=== PATIENT | female | born 1945 | race Asian ===

== ENCOUNTER 2018-04-30 00:54 | Inpatient (IN) | payer OTHER ==
[2018-04-30] MEDS: CA CHLORIDE 10% 10 ML SYRINGE IV ×2 (01:22→01:58)
[2018-04-30 01:26] LABS: ADD MAN DIFF? NO
[2018-04-30 01:28] LABS: BASOPHILS % 0.3 % (0.0-2.0); EOSINOPHILS % 0.2 % (0.0-7.0); HEMATOCRIT 33.4 % (37.0-47.0); LYMPHOCYTES # 0.7 10^3/ul (0.8-2.9); LYMPHOCYTES % 5.3 % (15.0-51.0); MEAN CORPUSCULAR HEMOGLOBIN 27.1 pg (29.0-33.0); MEAN CORPUSCULAR HGB CONC 29.9 g/dl (32.0-37.0); MEAN CORPUSCULAR VOLUME 90.5 fl (82.0-101.0); MONOCYTE # 0.7 10^3/ul (0.3-0.9); MONOCYTES % 5.1 % (0.0-11.0); NEUTROPHILS % 85.6 % (39.0-77.0); PLATELET COUNT 296 10^3/UL (140-415); RED BLOOD COUNT 3.69 10^6/ul (4.20-5.40); RED CELL DISTRIBUTION WIDTH 15.2 % (11.5-14.5)
[2018-04-30 01:28] LABS: WHITE BLOOD COUNT 12.9 10^3/ul (4.8-10.8)
[2018-04-30] MEDS ORDERED: DEXTROSE 50% 50 ML SYRINGE IV ×2 (01:30→04:00)
[2018-04-30] MEDS: DEXTROSE 50% 50 ML SYRINGE IV (01:31)
[2018-04-30] MEDS: ONDANSETRON 4 MG INJ IV (01:32)
[2018-04-30] MEDS: INSULIN REGULAR, HUMAN 100 UNIT/1 ML 3ML VIAL IVP (01:38)
[2018-04-30] MEDS: ALBUTEROL 0.5% (NEB) 2.5 MG/0.5 ML AMP INH (01:40)
[2018-04-30 01:46] LABS: ANION GAP 11 (5-13); BLOOD UREA NITROGEN 41 mg/dl (7-20); CALCIUM 9.3 mg/dl (8.4-10.2); CARBON DIOXIDE 27 mmol/L (21-31); CHLORIDE 103 mmol/L (97-110); CREATININE 5.45 mg/dl (0.44-1.00); GLUCOSE 232 mg/dl (70-220); MAGNESIUM 2.3 mg/dl (1.7-2.5); PHOSPHORUS 4.3 mg/dl (2.5-4.9); SODIUM 141 mmol/L (135-144)
[2018-04-30 01:48] LABS: INR 1.35; PROTIME 16.8 Sec (11.9-14.9); PT RATIO 1.3
[2018-04-30 01:49] LABS: PARTIAL THROMBOPLASTIN TIME 36.7 Sec (23.0-35.0)
[2018-04-30 01:53] LABS: POTASSIUM 7.3 mmol/L (3.5-5.1)
[2018-04-30 01:57] LABS: TROPONIN-I < 0.012 ng/ml (0.000-0.120)
[2018-04-30] MEDS: NITROGLYCERIN 50 MG/D5W (PMX) 250 ML IV (03:01)
[2018-04-30] MEDS ORDERED: ONDANSETRON 4 MG INJ IV (03:30)
[2018-04-30] MEDS ORDERED: GLUCOSE GEL 15 GRAM TUBE PO ×2 (04:00)
[2018-04-30] MEDS ORDERED: GLUCAGON 1 MG INJ IM (04:00)
[2018-04-30] MEDS ORDERED: GLUCOSE GEL 15 GRAM TUBE BUCCAL (04:00)
[2018-04-30 04:26] LABS: ANION GAP 10 (5-13); BLOOD UREA NITROGEN 42 mg/dl (7-20); CALCIUM 11.5 mg/dl (8.4-10.2); CARBON DIOXIDE 26 mmol/L (21-31); CHLORIDE 105 mmol/L (97-110); CREATININE 5.33 mg/dl (0.44-1.00); GLUCOSE 209 mg/dl (70-220); POTASSIUM 5.3 mmol/L (3.5-5.1); SODIUM 141 mmol/L (135-144)
[2018-04-30] MEDS ORDERED: hydrALAzine 20 MG INJ IV (05:00)
[2018-04-30] MEDS: hydrALAzine 20 MG INJ IV (05:05)
[2018-04-30] MEDS: SODIUM POLYSTYRENE 15 GM KIT (POWDER + SORBITOL) PO (05:06)
[2018-04-30 07:09] LABS: ADD MAN DIFF? NO
[2018-04-30 07:15] LABS: BASOPHILS % 0.2 % (0.0-2.0); HEMATOCRIT 32.8 % (37.0-47.0); HEMOGLOBIN 9.9 g/dl (12.0-16.0); LYMPHOCYTES % 5.9 % (15.0-51.0); MEAN CORPUSCULAR HEMOGLOBIN 26.9 pg (29.0-33.0); MEAN CORPUSCULAR HGB CONC 30.2 g/dl (32.0-37.0); MEAN CORPUSCULAR VOLUME 89.1 fl (82.0-101.0); MEAN PLATELET VOLUME 10.4 fl (7.4-10.4); MONOCYTES % 5.7 % (0.0-11.0); NEUTROPHIL # 14.5 10^3/ul (1.6-7.5); NEUTROPHILS % 86.6 % (39.0-77.0); PLATELET COUNT 298 10^3/UL (140-415); RED BLOOD COUNT 3.68 10^6/ul (4.20-5.40); RED CELL DISTRIBUTION WIDTH 15.2 % (11.5-14.5)
[2018-04-30 07:15] LABS: WHITE BLOOD COUNT 16.8 10^3/ul (4.8-10.8)
[2018-04-30 07:27] LABS: ALANINE AMINOTRANSFERASE 32 IU/L (13-69); ALBUMIN 3.7 g/dl (3.3-4.9); ALBUMIN/GLOBULIN RATIO 1.08; ALKALINE PHOSPHATASE 171 IU/L (42-121); ANION GAP 13 (5-13); ASPARTATE AMINO TRANSFERASE 59 IU/L (15-46); BLOOD UREA NITROGEN 44 mg/dl (7-20); CALCIUM 11.3 mg/dl (8.4-10.2); CARBON DIOXIDE 23 mmol/L (21-31); CHLORIDE 106 mmol/L (97-110); CREATININE 5.29 mg/dl (0.44-1.00); GLUCOSE 177 mg/dl (70-220); MAGNESIUM 2.3 mg/dl (1.7-2.5); SODIUM 142 mmol/L (135-144); TOTAL PROTEIN 7.1 g/dl (6.1-8.1)
[2018-04-30 07:28] LABS: CREATINE KINASE < 20 IU/L (23-200)
[2018-04-30 07:34] LABS: HEMOGLOBIN A1C 6.1 % (0-5.9)
[2018-04-30 07:39] LABS: CK-MB 0.73 ng/ml (0.0-2.4); TROPONIN-I < 0.012 ng/ml (0.000-0.120)
[2018-04-30] MEDS: SEVELAMER CARBONATE 800 MG TABLET PO ×3 (08:15→18:29)
[2018-04-30] MEDS: LOSARTAN 50 MG TAB PO (08:15)
[2018-04-30] MEDS: SENNA TAB PO (08:15)
[2018-04-30] MEDS: ASPIRIN (EC) 81 MG TAB PO (08:15)
[2018-04-30] MEDS: INSULIN GLARGINE [LANTus] (100 UNITS/ML) SYG SC ×2 (08:17→21:01)
[2018-04-30] MEDS: INSULIN ASPART [NOVOLOG] 3 ML PEN SC ×7 (08:18→21:00)
[2018-04-30] MEDS: HEPARIN 5,000 UNIT/1 ML VIAL SC ×2 (08:18→21:03)
[2018-04-30 09:32] LABS: HEPATITIS B SURFACE ANTIGEN NEGATIVE (NEGATIVE)
[2018-04-30 09:52] LABS: HEPATITIS B SURFACE ANTIBODY POSITIVE (NEGATIVE)
[2018-04-30 14:47] LABS: CREATINE KINASE < 20 IU/L (23-200)
[2018-04-30 15:00] LABS: CK-MB 0.79 ng/ml (0.0-2.4); TROPONIN-I < 0.012 ng/ml (0.000-0.120)
[2018-04-30 15:08] LABS: POTASSIUM 3.9 mmol/L (3.5-5.1)
[2018-04-30] MEDS: ATORVASTATIN 20 MG TAB PO (21:00)
[2018-05-01] MEDS: ACCU-CHEK XX (02:00)
[2018-05-01 05:15] LABS: PHOSPHORUS 3.3 mg/dl (2.5-4.9)
[2018-05-01] MEDS: INSULIN ASPART [NOVOLOG] 3 ML PEN SC ×7 (07:35→20:22)
[2018-05-01] MEDS: ASPIRIN (EC) 81 MG TAB PO (08:21)
[2018-05-01] MEDS: SENNA TAB PO (08:21)
[2018-05-01] MEDS: SEVELAMER CARBONATE 800 MG TABLET PO ×3 (08:22→18:01)
[2018-05-01] MEDS: INSULIN GLARGINE [LANTus] (100 UNITS/ML) SYG SC ×2 (08:24→23:07)
[2018-05-01] MEDS: HEPARIN 5,000 UNIT/1 ML VIAL SC (08:24)
[2018-05-01 10:24] LABS: MAGNESIUM 1.9 mg/dl (1.7-2.5)
[2018-05-01] MEDS ORDERED: HEPARIN 1000 UNITS/ML 10 ML INJ IV (10:30)
[2018-05-01 11:00] LABS: INR 1.13; PROTIME 14.6 Sec (11.9-14.9); PT RATIO 1.1
[2018-05-01 11:01] LABS: PARTIAL THROMBOPLASTIN TIME 38.2 Sec (23.0-35.0)
[2018-05-01] MEDS: CEFEPIME 1GM/50 ML (PMX) 50 ML IVPB (11:29)
[2018-05-01] MEDS: PANTOPRAZOLE (EC) 40 MG TAB PO (12:39)
[2018-05-01] MEDS: HEPARIN 25000 UNITS/250 ML 250 ML IV ×2 (12:57→20:40)
[2018-05-01 13:55] LABS: ANION GAP 11 (5-13); BLOOD UREA NITROGEN 25 mg/dl (7-20); CALCIUM 9.4 mg/dl (8.4-10.2); CARBON DIOXIDE 28 mmol/L (21-31); CHLORIDE 101 mmol/L (97-110); CREATININE 4.36 mg/dl (0.44-1.00); GLUCOSE 81 mg/dl (70-220); POTASSIUM 4.3 mmol/L (3.5-5.1); SODIUM 140 mmol/L (135-144)
[2018-05-01 19:33] LABS: INR 1.13; PROTIME 14.6 Sec (11.9-14.9); PT RATIO 1.1
[2018-05-01 19:34] LABS: PARTIAL THROMBOPLASTIN TIME 52.4 Sec (23.0-35.0)
[2018-05-01] MEDS: ATORVASTATIN 20 MG TAB PO (20:20)
[2018-05-02] MEDS: ACCU-CHEK XX (02:00)
[2018-05-02] MEDS: PANTOPRAZOLE (EC) 40 MG TAB PO (06:07)
[2018-05-02] MEDS: INSULIN ASPART [NOVOLOG] 3 ML PEN SC ×7 (07:55→22:04)
[2018-05-02] MEDS: SEVELAMER CARBONATE 800 MG TABLET PO ×3 (07:55→17:35)
[2018-05-02 08:16] LABS: ADD MAN DIFF? NO
[2018-05-02 08:19] LABS: WHITE BLOOD COUNT 13.4 10^3/ul (4.8-10.8)
[2018-05-02 08:19] LABS: BASOPHILS % 0.2 % (0.0-2.0); EOSINOPHILS # 0.1 10^3/ul (0.0-0.5); EOSINOPHILS % 0.7 % (0.0-7.0); HEMATOCRIT 33.2 % (37.0-47.0); HEMOGLOBIN 10.3 g/dl (12.0-16.0); LYMPHOCYTES # 0.6 10^3/ul (0.8-2.9); LYMPHOCYTES % 4.6 % (15.0-51.0); MEAN CORPUSCULAR VOLUME 87.1 fl (82.0-101.0); MEAN PLATELET VOLUME 10.4 fl (7.4-10.4); MONOCYTE # 0.8 10^3/ul (0.3-0.9); MONOCYTES % 6.1 % (0.0-11.0); NEUTROPHIL # 11.7 10^3/ul (1.6-7.5); NEUTROPHILS % 87.5 % (39.0-77.0); PLATELET COUNT 295 10^3/UL (140-415); RED BLOOD COUNT 3.81 10^6/ul (4.20-5.40); RED CELL DISTRIBUTION WIDTH 15.2 % (11.5-14.5)
[2018-05-02 08:44] LABS: PARTIAL THROMBOPLASTIN TIME 54.7 Sec (23.0-35.0)
[2018-05-02] MEDS: SENNA TAB PO (11:48)
[2018-05-02] MEDS: ASPIRIN (EC) 81 MG TAB PO (11:48)
[2018-05-02] MEDS: INSULIN GLARGINE [LANTus] (100 UNITS/ML) SYG SC ×2 (11:52→21:48)
[2018-05-02 11:58] LABS: ANION GAP 12 (5-13); BLOOD UREA NITROGEN 18 mg/dl (7-20); CALCIUM 8.6 mg/dl (8.4-10.2); CARBON DIOXIDE 30 mmol/L (21-31); CHLORIDE 99 mmol/L (97-110); CREATININE 3.19 mg/dl (0.44-1.00); GLUCOSE 98 mg/dl (70-220); SODIUM 141 mmol/L (135-144)
[2018-05-02] MEDS: CEFEPIME 1GM/50 ML (PMX) 50 ML IVPB (12:00)
[2018-05-02 16:59] LABS: PARTIAL THROMBOPLASTIN TIME 38.8 Sec (23.0-35.0)
[2018-05-02] MEDS: ATORVASTATIN 20 MG TAB PO (21:35)
[2018-05-03] MEDS: LIDOCAINE 1% (MPF) 30 ML INJ
[2018-05-03] MEDS: ACCU-CHEK XX (02:00)
[2018-05-03 06:10] LABS: ADD MAN DIFF? NO
[2018-05-03 06:21] LABS: WHITE BLOOD COUNT 14.8 10^3/ul (4.8-10.8)
[2018-05-03 06:21] LABS: BASOPHILS % 0.3 % (0.0-2.0); EOSINOPHILS # 0.2 10^3/ul (0.0-0.5); EOSINOPHILS % 1.4 % (0.0-7.0); HEMATOCRIT 34.5 % (37.0-47.0); HEMOGLOBIN 10.5 g/dl (12.0-16.0); LYMPHOCYTES # 0.8 10^3/ul (0.8-2.9); LYMPHOCYTES % 5.5 % (15.0-51.0); MEAN CORPUSCULAR HEMOGLOBIN 26.9 pg (29.0-33.0); MEAN CORPUSCULAR HGB CONC 30.4 g/dl (32.0-37.0); MEAN CORPUSCULAR VOLUME 88.2 fl (82.0-101.0); MEAN PLATELET VOLUME 10.5 fl (7.4-10.4); MONOCYTE # 1.1 10^3/ul (0.3-0.9); MONOCYTES % 7.7 % (0.0-11.0); NEUTROPHIL # 12.5 10^3/ul (1.6-7.5); NEUTROPHILS % 84.2 % (39.0-77.0); PLATELET COUNT 311 10^3/UL (140-415); RED BLOOD COUNT 3.91 10^6/ul (4.20-5.40); RED CELL DISTRIBUTION WIDTH 15.2 % (11.5-14.5)
[2018-05-03] MEDS: PANTOPRAZOLE (EC) 40 MG TAB PO (06:30)
[2018-05-03] MEDS ORDERED: LIDOCAINE 2% (SDV) 5 ML INJ (07:00)
[2018-05-03 07:26] LABS: ANION GAP 12 (5-13); BLOOD UREA NITROGEN 40 mg/dl (7-20); CALCIUM 8.9 mg/dl (8.4-10.2); CARBON DIOXIDE 25 mmol/L (21-31); CHLORIDE 99 mmol/L (97-110); CREATININE 5.23 mg/dl (0.44-1.00); GLUCOSE 97 mg/dl (70-220); SODIUM 136 mmol/L (135-144)
[2018-05-03] MEDS: INSULIN ASPART [NOVOLOG] 3 ML PEN SC ×8 (07:48→21:00)
[2018-05-03] MEDS: SEVELAMER CARBONATE 800 MG TABLET PO ×3 (07:48→17:33)
[2018-05-03] MEDS: ASPIRIN (EC) 81 MG TAB PO (09:00)
[2018-05-03] MEDS: SENNA TAB PO (09:00)
[2018-05-03] MEDS: INSULIN GLARGINE [LANTus] (100 UNITS/ML) SYG SC ×2 (09:00→21:24)
[2018-05-03] MEDS ORDERED: HEPARIN 1000 UNITS/ML 10 ML INJ (11:27)
[2018-05-03] MEDS: CEFEPIME 1GM/50 ML (PMX) 50 ML IVPB (12:02)
[2018-05-03] MEDS ORDERED: PROPOFOL 100 ML (13:00)
[2018-05-03] MEDS ORDERED: FENTAnyl 50 MCG/ML VIAL (13:02)
[2018-05-03] MEDS ORDERED: LIDOCAINE 1%/EPI (1:100,000) (MDV) 20 ML (13:34)
[2018-05-03] MEDS: POLYMYXIN/BACITRACIN 1L IRRIG (13:42)
[2018-05-03] MEDS: MINERAL OIL LIGHT 10 ML VIAL (13:42)
[2018-05-03] MEDS: LIDOCAINE 1%/EPI (1:100,000) (MDV) 20 ML (13:42)
[2018-05-03] MEDS: IOHEXOL 300MG/ML 30 ML BTL (13:44)
[2018-05-03] MEDS ORDERED: DIPHENHYDRAMINE 50 MG INJ IV (14:30)
[2018-05-03] MEDS ORDERED: OXYCODONE/ACETAMINOPHEN (5/325) TAB PO ×2 (14:30)
[2018-05-03] MEDS ORDERED: EPHEDrine SULFATE 50 MG/5 ML SYG IV (14:30)
[2018-05-03] MEDS ORDERED: ONDANSETRON 4 MG INJ IV (14:30)
[2018-05-03] MEDS ORDERED: LABETALOL HCL 20MG INJ IV (14:30)
[2018-05-03] MEDS ORDERED: hydrALAzine 20 MG INJ IV (14:30)
[2018-05-03] MEDS ORDERED: morphine (1 MG/ML) 10ML SYRINGE IV ×2 (14:30)
[2018-05-03] MEDS ORDERED: ALBUTEROL 0.083% (NEB) 2.5 MG/3 ML AMP HHN (14:30)
[2018-05-03] MEDS ORDERED: MEPERIDINE 25 MG INJ IV (14:30)
[2018-05-03] MEDS ORDERED: CEFAZOLIN 1 GM/50 ML (PMX) 50 ML IVPB (15:00)
[2018-05-03 18:53] LABS: ALANINE AMINOTRANSFERASE 24 IU/L (13-69); ALBUMIN 3.4 g/dl (3.3-4.9); ALBUMIN/GLOBULIN RATIO 0.91; ALKALINE PHOSPHATASE 124 IU/L (42-121); ANION GAP 14 (5-13); ASPARTATE AMINO TRANSFERASE 21 IU/L (15-46); BLOOD UREA NITROGEN 44 mg/dl (7-20); CALCIUM 9.5 mg/dl (8.4-10.2); CARBON DIOXIDE 26 mmol/L (21-31); CHLORIDE 97 mmol/L (97-110); CREATININE 5.78 mg/dl (0.44-1.00); GLUCOSE 63 mg/dl (70-220); SODIUM 137 mmol/L (135-144); TOTAL PROTEIN 7.1 g/dl (6.1-8.1)
[2018-05-03] MEDS: ATORVASTATIN 20 MG TAB PO (21:13)
[2018-05-03] MEDS: APIXABAN 5 MG TABLET PO (21:13)
[2018-05-04] MEDS: ACCU-CHEK XX (01:52)
[2018-05-04 06:21] LABS: ADD MAN DIFF? NO
[2018-05-04] MEDS: PANTOPRAZOLE (EC) 40 MG TAB PO (06:26)
[2018-05-04 06:35] LABS: BASOPHILS % 0.3 % (0.0-2.0); EOSINOPHILS # 0.2 10^3/ul (0.0-0.5); HEMOGLOBIN 10.2 g/dl (12.0-16.0); LYMPHOCYTES # 0.7 10^3/ul (0.8-2.9); LYMPHOCYTES % 4.6 % (15.0-51.0); MEAN CORPUSCULAR HEMOGLOBIN 26.9 pg (29.0-33.0); MEAN CORPUSCULAR HGB CONC 30.9 g/dl (32.0-37.0); MEAN CORPUSCULAR VOLUME 87.1 fl (82.0-101.0); MEAN PLATELET VOLUME 10.7 fl (7.4-10.4); MONOCYTE # 1.2 10^3/ul (0.3-0.9); MONOCYTES % 7.5 % (0.0-11.0); NEUTROPHIL # 13.3 10^3/ul (1.6-7.5); NEUTROPHILS % 85.7 % (39.0-77.0); PLATELET COUNT 310 10^3/UL (140-415); RED BLOOD COUNT 3.79 10^6/ul (4.20-5.40); RED CELL DISTRIBUTION WIDTH 15.4 % (11.5-14.5)
[2018-05-04 06:35] LABS: WHITE BLOOD COUNT 15.5 10^3/ul (4.8-10.8)
[2018-05-04 07:13] LABS: ANION GAP 15 (5-13); BLOOD UREA NITROGEN 53 mg/dl (7-20); CALCIUM 9.3 mg/dl (8.4-10.2); CARBON DIOXIDE 23 mmol/L (21-31); CHLORIDE 99 mmol/L (97-110); CREATININE 6.68 mg/dl (0.44-1.00); GLUCOSE 127 mg/dl (70-220); POTASSIUM 4.6 mmol/L (3.5-5.1); SODIUM 137 mmol/L (135-144)
[2018-05-04] MEDS: INSULIN ASPART [NOVOLOG] 3 ML PEN SC ×7 (07:35→21:00)
[2018-05-04] MEDS: ASPIRIN (EC) 81 MG TAB PO (08:28)
[2018-05-04] MEDS: SENNA TAB PO (08:28)
[2018-05-04] MEDS: APIXABAN 5 MG TABLET PO ×2 (08:28→21:06)
[2018-05-04] MEDS: SEVELAMER CARBONATE 800 MG TABLET PO ×3 (08:28→17:52)
[2018-05-04] MEDS: INSULIN GLARGINE [LANTus] (100 UNITS/ML) SYG SC (08:35)
[2018-05-04] MEDS: CEFEPIME 1GM/50 ML (PMX) 50 ML IVPB (10:07)
[2018-05-04] MEDS: ACETAMINOPHEN 650MG/20.3ML CUP PO (10:08)
[2018-05-04 18:56] LABS: PTH CALCIUM 8.9 mg/dL (8.6-10.4)
[2018-05-04] MEDS: ATORVASTATIN 20 MG TAB PO (21:05)
[2018-05-05] MEDS: INSULIN GLARGINE [LANTus] (100 UNITS/ML) SYG SC ×3 (01:14→21:38)
[2018-05-05] MEDS: ACCU-CHEK XX (02:00)
[2018-05-05] MEDS: PANTOPRAZOLE (EC) 40 MG TAB PO (06:22)
[2018-05-05 07:01] LABS: ADD MAN DIFF? NO
[2018-05-05 07:04] LABS: WHITE BLOOD COUNT 15.3 10^3/ul (4.8-10.8)
[2018-05-05 07:04] LABS: BASOPHILS % 0.3 % (0.0-2.0); EOSINOPHILS # 0.2 10^3/ul (0.0-0.5); EOSINOPHILS % 1.2 % (0.0-7.0); HEMATOCRIT 32.5 % (37.0-47.0); LYMPHOCYTES # 0.8 10^3/ul (0.8-2.9); MEAN CORPUSCULAR HEMOGLOBIN 26.5 pg (29.0-33.0); MEAN CORPUSCULAR HGB CONC 30.8 g/dl (32.0-37.0); MEAN PLATELET VOLUME 10.8 fl (7.4-10.4); MONOCYTE # 1.1 10^3/ul (0.3-0.9); MONOCYTES % 7.2 % (0.0-11.0); NEUTROPHIL # 13.1 10^3/ul (1.6-7.5); NEUTROPHILS % 85.6 % (39.0-77.0); PLATELET COUNT 303 10^3/UL (140-415); RED BLOOD COUNT 3.78 10^6/ul (4.20-5.40); RED CELL DISTRIBUTION WIDTH 15.1 % (11.5-14.5)
[2018-05-05 07:34] LABS: ANION GAP 15 (5-13); BLOOD UREA NITROGEN 62 mg/dl (7-20); CALCIUM 9.7 mg/dl (8.4-10.2); CARBON DIOXIDE 21 mmol/L (21-31); CHLORIDE 98 mmol/L (97-110); CREATININE 7.13 mg/dl (0.44-1.00); GLUCOSE 85 mg/dl (70-220); MAGNESIUM 2.1 mg/dl (1.7-2.5); POTASSIUM 4.6 mmol/L (3.5-5.1); SODIUM 134 mmol/L (135-144)
[2018-05-05 07:34] LABS: PHOSPHORUS 4.9 mg/dl (2.5-4.9)
[2018-05-05] MEDS: INSULIN ASPART [NOVOLOG] 3 ML PEN SC ×7 (07:55→21:00)
[2018-05-05] MEDS: SEVELAMER CARBONATE 800 MG TABLET PO ×3 (07:57→17:55)
[2018-05-05] MEDS: SENNA TAB PO (08:52)
[2018-05-05] MEDS: APIXABAN 5 MG TABLET PO ×2 (08:53→21:18)
[2018-05-05] MEDS: ASPIRIN (EC) 81 MG TAB PO (08:53)
[2018-05-05] MEDS: ACETAMINOPHEN 325 MG TAB PO ×2 (09:15→15:46)
[2018-05-05] MEDS: DILTIAZEM (CD) 180 MG CAP PO (10:41)
[2018-05-05] MEDS: CEFEPIME 1GM/50 ML (PMX) 50 ML IVPB (10:42)
[2018-05-05] MEDS: DILTIAZEM 25 MG INJ IV (10:42)
[2018-05-05] MEDS ORDERED: VANCOMYCIN IV PER PHARMACY XX (14:00)
[2018-05-05] MEDS: VANCOMYCIN 1 GM 250 ML IVPB (14:24)
[2018-05-05] MEDS ORDERED: BISACODYL (EC) 5 MG TAB PO (15:30)
[2018-05-05] MEDS: ATORVASTATIN 20 MG TAB PO (21:17)
[2018-05-05] MEDS: POLYETHYLENE GLYCOL 17 GM PACKET PO (21:18)
[2018-05-06] MEDS: ACCU-CHEK XX (02:00)
[2018-05-06] MEDS: ACETAMINOPHEN 325 MG TAB PO (02:50)
[2018-05-06 05:41] LABS: ADD UMIC YES; UR ASCORBIC ACID NEGATIVE (NEGATIVE); UR BACTERIA FEW /HPF (NONE SEEN); UR BILIRUBIN (Dip) NEGATIVE (NEGATIVE); UR BLOOD (Dip) 1+ mg/dL (NEGATIVE); UR CLARITY SLIGHTLY CLOUDY (CLEAR); UR COLOR YELLOW (YELLOW); UR GLUCOSE (Dip) 1+ mg/dL (NEGATIVE); UR KETONES (Dip) NEGATIVE (NEGATIVE); UR LEUKOCYTE ESTERASE (Dip) NEGATIVE Leu/ul (NEGATIVE); UR NITRITE (Dip) NEGATIVE (NEGATIVE); UR RBC 9 /HPF (0-5); UR SQUAMOUS EPITHELIAL CELL MODERATE /HPF (FEW); UR TOTAL PROTEIN (Dip) 2+ mg/dl (NEGATIVE); UR UROBILINOGEN (Dip) NEGATIVE (NEGATIVE); UR WBC 0 /HPF (0-5)
[2018-05-06] MEDS: PANTOPRAZOLE (EC) 40 MG TAB PO (06:11)
[2018-05-06] MEDS: DEXTROSE 50% 50 ML SYRINGE IV (06:19)
[2018-05-06 07:52] LABS: ADD MAN DIFF? NO
[2018-05-06 07:54] LABS: ABNORMAL IP MESSAGE 1; BASOPHILS % 0.1 % (0.0-2.0); EOSINOPHILS # 0.1 10^3/ul (0.0-0.5); EOSINOPHILS % 0.4 % (0.0-7.0); HEMATOCRIT 28.9 % (37.0-47.0); HEMOGLOBIN 9.1 g/dl (12.0-16.0); LYMPHOCYTES # 0.6 10^3/ul (0.8-2.9); LYMPHOCYTES % 3.7 % (15.0-51.0); MEAN CORPUSCULAR HEMOGLOBIN 26.8 pg (29.0-33.0); MEAN CORPUSCULAR HGB CONC 31.5 g/dl (32.0-37.0); MEAN PLATELET VOLUME 10.4 fl (7.4-10.4); MONOCYTE # 1.3 10^3/ul (0.3-0.9); MONOCYTES % 8.3 % (0.0-11.0); NEUTROPHIL # 13.2 10^3/ul (1.6-7.5); NEUTROPHILS % 86.6 % (39.0-77.0); PLATELET COUNT 262 10^3/UL (140-415); RED CELL DISTRIBUTION WIDTH 15.3 % (11.5-14.5)
[2018-05-06 07:54] LABS: WHITE BLOOD COUNT 15.3 10^3/ul (4.8-10.8)
[2018-05-06] MEDS: INSULIN ASPART [NOVOLOG] 3 ML PEN SC ×7 (07:55→21:00)
[2018-05-06 07:56] LABS: POSITIVE DIFF @See below
[2018-05-06 08:17] LABS: ANION GAP 12 (5-13); BLOOD UREA NITROGEN 35 mg/dl (7-20); CALCIUM 8.9 mg/dl (8.4-10.2); CARBON DIOXIDE 26 mmol/L (21-31); CHLORIDE 98 mmol/L (97-110); CREATININE 4.43 mg/dl (0.44-1.00); GLUCOSE 114 mg/dl (70-220); POTASSIUM 4.6 mmol/L (3.5-5.1); SODIUM 136 mmol/L (135-144)
[2018-05-06 08:22] LABS: MAGNESIUM 2.1 mg/dl (1.7-2.5)
[2018-05-06 08:22] LABS: PHOSPHORUS 4.5 mg/dl (2.5-4.9)
[2018-05-06] MEDS: SENNA TAB PO (09:09)
[2018-05-06] MEDS: POLYETHYLENE GLYCOL 17 GM PACKET PO ×2 (09:09→20:46)
[2018-05-06] MEDS: ASPIRIN (EC) 81 MG TAB PO (09:10)
[2018-05-06] MEDS: SEVELAMER CARBONATE 800 MG TABLET PO ×3 (09:10→17:54)
[2018-05-06] MEDS: INSULIN GLARGINE [LANTus] (100 UNITS/ML) SYG SC ×2 (09:17→21:37)
[2018-05-06] MEDS: DILTIAZEM (CD) 180 MG CAP PO (09:30)
[2018-05-06] MEDS: APIXABAN 5 MG TABLET PO ×2 (09:30→20:45)
[2018-05-06] MEDS: CEFEPIME 1GM/50 ML (PMX) 50 ML IVPB (11:19)
[2018-05-06] MEDS: ATORVASTATIN 20 MG TAB PO (20:45)
[2018-05-07 00:46] LABS: PTH INTACT 279 pg/mL (14-64)
[2018-05-07] MEDS: ACCU-CHEK XX (02:00)
[2018-05-07 05:31] LABS: ADD MAN DIFF? NO
[2018-05-07 05:36] LABS: WHITE BLOOD COUNT 13.4 10^3/ul (4.8-10.8)
[2018-05-07 05:36] LABS: BASOPHILS % 0.2 % (0.0-2.0); EOSINOPHILS # 0.2 10^3/ul (0.0-0.5); EOSINOPHILS % 1.2 % (0.0-7.0); HEMATOCRIT 27.2 % (37.0-47.0); HEMOGLOBIN 8.5 g/dl (12.0-16.0); LYMPHOCYTES # 0.9 10^3/ul (0.8-2.9); LYMPHOCYTES % 6.4 % (15.0-51.0); MEAN CORPUSCULAR HEMOGLOBIN 26.6 pg (29.0-33.0); MEAN CORPUSCULAR HGB CONC 31.3 g/dl (32.0-37.0); MEAN CORPUSCULAR VOLUME 85.3 fl (82.0-101.0); MEAN PLATELET VOLUME 10.5 fl (7.4-10.4); MONOCYTE # 1.2 10^3/ul (0.3-0.9); MONOCYTES % 8.8 % (0.0-11.0); NEUTROPHILS % 82.6 % (39.0-77.0); PLATELET COUNT 279 10^3/UL (140-415); RED BLOOD COUNT 3.19 10^6/ul (4.20-5.40); RED CELL DISTRIBUTION WIDTH 15.3 % (11.5-14.5)
[2018-05-07 06:18] LABS: ANION GAP 13 (5-13); BLOOD UREA NITROGEN 49 mg/dl (7-20); CALCIUM 9.2 mg/dl (8.4-10.2); CARBON DIOXIDE 25 mmol/L (21-31); CHLORIDE 93 mmol/L (97-110); CREATININE 5.64 mg/dl (0.44-1.00); GLUCOSE 119 mg/dl (70-220); POTASSIUM 5.4 mmol/L (3.5-5.1); SODIUM 131 mmol/L (135-144)
[2018-05-07 06:20] LABS: VANCOMYCIN,RANDOM 7.9 ug/ml
[2018-05-07] MEDS: PANTOPRAZOLE (EC) 40 MG TAB PO (06:30)
[2018-05-07 07:39] LABS: PHOSPHORUS 5.9 mg/dl (2.5-4.9)
[2018-05-07 07:39] LABS: MAGNESIUM 2.2 mg/dl (1.7-2.5)
[2018-05-07] MEDS: INSULIN ASPART [NOVOLOG] 3 ML PEN SC ×7 (07:55→20:46)
[2018-05-07] MEDS: SEVELAMER CARBONATE 800 MG TABLET PO ×3 (09:14→19:24)
[2018-05-07] MEDS: APIXABAN 5 MG TABLET PO ×2 (09:17→20:52)
[2018-05-07] MEDS: ASPIRIN (EC) 81 MG TAB PO (09:19)
[2018-05-07] MEDS: SENNA TAB PO (09:19)
[2018-05-07] MEDS: DILTIAZEM (CD) 180 MG CAP PO (09:19)
[2018-05-07] MEDS: POLYETHYLENE GLYCOL 17 GM PACKET PO ×2 (09:20→20:44)
[2018-05-07] MEDS: INSULIN GLARGINE [LANTus] (100 UNITS/ML) SYG SC ×2 (09:27→20:50)
[2018-05-07] MEDS: VANCOMYCIN 1 GM 250 ML IVPB (09:45)
[2018-05-07] MEDS: CEFEPIME 1GM/50 ML (PMX) 50 ML IVPB (11:17)
[2018-05-07] MEDS: ATORVASTATIN 20 MG TAB PO (20:44)
[2018-05-08] MEDS: ACCU-CHEK XX (02:00)
[2018-05-08] MEDS: PANTOPRAZOLE (EC) 40 MG TAB PO (06:07)
[2018-05-08] MEDS: INSULIN ASPART [NOVOLOG] 3 ML PEN SC ×7 (07:55→21:21)
[2018-05-08] MEDS: POLYETHYLENE GLYCOL 17 GM PACKET PO ×2 (08:11→21:17)
[2018-05-08] MEDS: SEVELAMER CARBONATE 800 MG TABLET PO ×3 (08:14→17:07)
[2018-05-08] MEDS: DILTIAZEM (CD) 180 MG CAP PO (08:14)
[2018-05-08] MEDS: APIXABAN 5 MG TABLET PO ×2 (08:14→21:17)
[2018-05-08] MEDS: ASPIRIN (EC) 81 MG TAB PO (08:14)
[2018-05-08] MEDS: SENNA TAB PO (08:15)
[2018-05-08] MEDS: INSULIN GLARGINE [LANTus] (100 UNITS/ML) SYG SC ×2 (08:33→21:21)
[2018-05-08 08:39] LABS: ADD MAN DIFF? NO
[2018-05-08 08:43] LABS: BASOPHILS % 0.3 % (0.0-2.0); EOSINOPHILS # 0.2 10^3/ul (0.0-0.5); EOSINOPHILS % 1.2 % (0.0-7.0); HEMATOCRIT 29.9 % (37.0-47.0); LYMPHOCYTES % 7.8 % (15.0-51.0); MEAN CORPUSCULAR HEMOGLOBIN 26.3 pg (29.0-33.0); MEAN CORPUSCULAR HGB CONC 30.1 g/dl (32.0-37.0); MEAN CORPUSCULAR VOLUME 87.4 fl (82.0-101.0); MEAN PLATELET VOLUME 10.4 fl (7.4-10.4); MONOCYTE # 1.2 10^3/ul (0.3-0.9); NEUTROPHIL # 10.5 10^3/ul (1.6-7.5); NEUTROPHILS % 80.9 % (39.0-77.0); PLATELET COUNT 340 10^3/UL (140-415); RED BLOOD COUNT 3.42 10^6/ul (4.20-5.40); RED CELL DISTRIBUTION WIDTH 15.5 % (11.5-14.5)
[2018-05-08 09:01] LABS: ANION GAP 12 (5-13); BLOOD UREA NITROGEN 34 mg/dl (7-20); CALCIUM 9.3 mg/dl (8.4-10.2); CARBON DIOXIDE 27 mmol/L (21-31); CHLORIDE 100 mmol/L (97-110); CREATININE 4.27 mg/dl (0.44-1.00); GLUCOSE 115 mg/dl (70-220); POTASSIUM 4.6 mmol/L (3.5-5.1); SODIUM 139 mmol/L (135-144)
[2018-05-08 09:07] LABS: MAGNESIUM 2.3 mg/dl (1.7-2.5)
[2018-05-08 09:07] LABS: PHOSPHORUS 4.2 mg/dl (2.5-4.9)
[2018-05-08] MEDS: CEFEPIME 1GM/50 ML (PMX) 50 ML IVPB (10:24)
[2018-05-08] MEDS: ATORVASTATIN 20 MG TAB PO (21:17)
[2018-05-09] MEDS: ACCU-CHEK XX (02:00)
[2018-05-09] MEDS: PANTOPRAZOLE (EC) 40 MG TAB PO (06:30)
[2018-05-09] MEDS: INSULIN ASPART [NOVOLOG] 3 ML PEN SC ×7 (07:55→20:44)
[2018-05-09] MEDS: APIXABAN 5 MG TABLET PO ×2 (08:18→20:42)
[2018-05-09] MEDS: SENNA TAB PO (08:18)
[2018-05-09] MEDS: ASPIRIN (EC) 81 MG TAB PO (08:18)
[2018-05-09] MEDS: SEVELAMER CARBONATE 800 MG TABLET PO ×3 (08:19→18:24)
[2018-05-09] MEDS: POLYETHYLENE GLYCOL 17 GM PACKET PO ×2 (08:19→20:41)
[2018-05-09] MEDS: DILTIAZEM (CD) 180 MG CAP PO (08:19)
[2018-05-09 08:27] LABS: ADD MAN DIFF? NO
[2018-05-09 08:31] LABS: BASOPHILS % 0.2 % (0.0-2.0); EOSINOPHILS # 0.1 10^3/ul (0.0-0.5); EOSINOPHILS % 0.8 % (0.0-7.0); HEMATOCRIT 31.2 % (37.0-47.0); HEMOGLOBIN 9.5 g/dl (12.0-16.0); LYMPHOCYTES # 0.9 10^3/ul (0.8-2.9); LYMPHOCYTES % 5.4 % (15.0-51.0); MEAN CORPUSCULAR HEMOGLOBIN 26.3 pg (29.0-33.0); MEAN CORPUSCULAR HGB CONC 30.4 g/dl (32.0-37.0); MEAN CORPUSCULAR VOLUME 86.4 fl (82.0-101.0); MEAN PLATELET VOLUME 10.6 fl (7.4-10.4); MONOCYTE # 1.5 10^3/ul (0.3-0.9); MONOCYTES % 8.5 % (0.0-11.0); NEUTROPHIL # 14.7 10^3/ul (1.6-7.5); NEUTROPHILS % 84.4 % (39.0-77.0); PLATELET COUNT 386 10^3/UL (140-415); RED BLOOD COUNT 3.61 10^6/ul (4.20-5.40); RED CELL DISTRIBUTION WIDTH 15.5 % (11.5-14.5)
[2018-05-09 08:31] LABS: WHITE BLOOD COUNT 17.4 10^3/ul (4.8-10.8)
[2018-05-09] MEDS: INSULIN GLARGINE [LANTus] (100 UNITS/ML) SYG SC ×2 (08:37→21:04)
[2018-05-09 08:48] LABS: MAGNESIUM 2.4 mg/dl (1.7-2.5)
[2018-05-09 08:48] LABS: PHOSPHORUS 5.2 mg/dl (2.5-4.9)
[2018-05-09 08:49] LABS: ANION GAP 15 (5-13); BLOOD UREA NITROGEN 51 mg/dl (7-20); CALCIUM 9.8 mg/dl (8.4-10.2); CARBON DIOXIDE 24 mmol/L (21-31); CHLORIDE 97 mmol/L (97-110); CREATININE 5.42 mg/dl (0.44-1.00); GLUCOSE 65 mg/dl (70-220); POTASSIUM 4.8 mmol/L (3.5-5.1); SODIUM 136 mmol/L (135-144)
[2018-05-09] MEDS: CEFEPIME 1GM/50 ML (PMX) 50 ML IVPB (09:52)
[2018-05-09] MEDS: ATORVASTATIN 20 MG TAB PO (20:43)
[2018-05-10] MEDS: ACCU-CHEK XX (03:00)
[2018-05-10 05:57] LABS: ADD MAN DIFF? NO
[2018-05-10 05:59] LABS: WHITE BLOOD COUNT 12.9 10^3/ul (4.8-10.8)
[2018-05-10 05:59] LABS: BASOPHILS % 0.3 % (0.0-2.0); EOSINOPHILS # 0.2 10^3/ul (0.0-0.5); EOSINOPHILS % 1.2 % (0.0-7.0); HEMATOCRIT 29.3 % (37.0-47.0); HEMOGLOBIN 9.1 g/dl (12.0-16.0); LYMPHOCYTES # 1.2 10^3/ul (0.8-2.9); LYMPHOCYTES % 9.3 % (15.0-51.0); MEAN CORPUSCULAR HEMOGLOBIN 27.1 pg (29.0-33.0); MEAN CORPUSCULAR HGB CONC 31.1 g/dl (32.0-37.0); MEAN CORPUSCULAR VOLUME 87.2 fl (82.0-101.0); MEAN PLATELET VOLUME 10.2 fl (7.4-10.4); MONOCYTE # 1.3 10^3/ul (0.3-0.9); MONOCYTES % 9.7 % (0.0-11.0); NEUTROPHIL # 10.2 10^3/ul (1.6-7.5); NEUTROPHILS % 78.6 % (39.0-77.0); PLATELET COUNT 380 10^3/UL (140-415); RED BLOOD COUNT 3.36 10^6/ul (4.20-5.40); RED CELL DISTRIBUTION WIDTH 15.5 % (11.5-14.5)
[2018-05-10 06:56] LABS: VANCOMYCIN,RANDOM 9.8 ug/ml
[2018-05-10 07:08] LABS: ANION GAP 9 (5-13); BLOOD UREA NITROGEN 32 mg/dl (7-20); CALCIUM 9.4 mg/dl (8.4-10.2); CARBON DIOXIDE 31 mmol/L (21-31); CHLORIDE 100 mmol/L (97-110); CREATININE 3.84 mg/dl (0.44-1.00); GLUCOSE 52 mg/dl (70-220); POTASSIUM 4.3 mmol/L (3.5-5.1); SODIUM 140 mmol/L (135-144)
[2018-05-10 07:41] LABS: MAGNESIUM 2.5 mg/dl (1.7-2.5)
[2018-05-10 07:41] LABS: PHOSPHORUS 4.1 mg/dl (2.5-4.9)
[2018-05-10] MEDS: PANTOPRAZOLE (EC) 40 MG TAB PO (07:45)
[2018-05-10] MEDS: INSULIN ASPART [NOVOLOG] 3 ML PEN SC ×4 (07:55→11:47)
[2018-05-10] MEDS: APIXABAN 5 MG TABLET PO (08:10)
[2018-05-10] MEDS: POLYETHYLENE GLYCOL 17 GM PACKET PO (08:10)
[2018-05-10] MEDS: SENNA TAB PO (08:11)
[2018-05-10] MEDS: DILTIAZEM (CD) 180 MG CAP PO (08:11)
[2018-05-10] MEDS: SEVELAMER CARBONATE 800 MG TABLET PO ×2 (08:11→11:42)
[2018-05-10] MEDS: ASPIRIN (EC) 81 MG TAB PO (08:11)
[2018-05-10] MEDS: INSULIN GLARGINE [LANTus] (100 UNITS/ML) SYG SC (08:21)
[2018-05-10] MEDS: VANCOMYCIN 1 GM 250 ML IVPB (11:42)
== END 2018-05-10 15:55 | DRG 242 ==
LOC: E/R 00:54 → TEL 05-01 16:54 → ICU 03:03
PROC: 0JH606Z Insertion of Pacemaker, Dual Chamber into Chest Subcutaneous Tissue and Fascia, Open Approach (ICD-10-PCS; principal; 2018-05-03 08:12)
PROC: 02HK3JZ Insertion of Pacemaker Lead into Right Ventricle, Percutaneous Approach (ICD-10-PCS; 2018-05-03 08:12)
PROC: 02H63JZ Insertion of Pacemaker Lead into Right Atrium, Percutaneous Approach (ICD-10-PCS; 2018-05-03 08:12)
PROC: 5A1D70Z Performance of Urinary Filtration, Intermittent, Less than 6 Hours Per Day (ICD-10-PCS; 2018-05-03 08:12)
DX: I49.5 Sick sinus syndrome (principal); N18.6 End stage renal disease; I12.0 Hypertensive chronic kidney disease with stage 5 chronic kidney disease or end stage renal disease; D68.9 Coagulation defect, unspecified; N39.0 Urinary tract infection, site not specified; R65.10 Systemic inflammatory response syndrome (SIRS) of non-infectious origin without acute organ dysfunction; E87.5 Hyperkalemia; E11.22 Type 2 diabetes mellitus with diabetic chronic kidney disease; Z99.2 Dependence on renal dialysis; I16.0 Hypertensive urgency; Z86.73 Personal history of transient ischemic attack (TIA), and cerebral infarction without residual deficits; E83.52 Hypercalcemia; D63.1 Anemia in chronic kidney disease; E78.5 Hyperlipidemia, unspecified; Z91.11 Patient's noncompliance with dietary regimen; M81.0 Age-related osteoporosis without current pathological fracture; I48.2 Chronic atrial fibrillation; J20.9 Acute bronchitis, unspecified; I77.9 Disorder of arteries and arterioles, unspecified; R60.9 Edema, unspecified
CPT/HCPCS: 36415; 71045; 80048; 80053; 80202; 81001; 82550; 82553; 82962; 83036; 83735; 83970; 84100; 84132; 84443; 84484; 85025; 85610; 85730; 86706; 87040; 87081; 87086; 87340; 90935; 93005; 93306; 93971; 94644; 96374; 96375; 96376; 97110; 97116; 97161; 97530; 99291-25

== ENCOUNTER 2018-09-22 16:07 | Inpatient (IN) | payer OTHER ==
[2018-09-22 16:29] LABS: ADD MAN DIFF? NO
[2018-09-22 16:35] LABS: BASOPHILS % 0.3 % (0.0-2.0); EOSINOPHILS # 0.1 10^3/ul (0.0-0.5); EOSINOPHILS % 0.8 % (0.0-7.0); HEMATOCRIT 30.6 % (37.0-47.0); HEMOGLOBIN 9.9 g/dl (12.0-16.0); LYMPHOCYTES % 9.8 % (15.0-51.0); MEAN CORPUSCULAR HEMOGLOBIN 28.3 pg (29.0-33.0); MEAN CORPUSCULAR HGB CONC 32.4 g/dl (32.0-37.0); MEAN CORPUSCULAR VOLUME 87.4 fl (82.0-101.0); MEAN PLATELET VOLUME 10.4 fl (7.4-10.4); MONOCYTE # 0.7 10^3/ul (0.3-0.9); MONOCYTES % 6.5 % (0.0-11.0); NEUTROPHIL # 8.2 10^3/ul (1.6-7.5); NEUTROPHILS % 82.2 % (39.0-77.0); PLATELET COUNT 206 10^3/UL (140-415)
[2018-09-22 16:53] LABS: INR 1.21; PROTIME 15.4 Sec (11.9-14.9); PT RATIO 1.2
[2018-09-22 16:54] LABS: PARTIAL THROMBOPLASTIN TIME 45.9 Sec (23.0-35.0)
[2018-09-22 16:58] LABS: ALANINE AMINOTRANSFERASE 15 IU/L (13-69); ALBUMIN 3.8 g/dl (3.3-4.9); ALBUMIN/GLOBULIN RATIO 1.11; ALKALINE PHOSPHATASE 102 IU/L (42-121); ANION GAP 10 (5-13); ASPARTATE AMINO TRANSFERASE 22 IU/L (15-46); BILIRUBIN,INDIRECT 0.3 mg/dl (0-1.1); BILIRUBIN,TOTAL 0.3 mg/dl (0.2-1.3); BLOOD UREA NITROGEN 28 mg/dl (7-20); CALCIUM 9.2 mg/dl (8.4-10.2); CARBON DIOXIDE 26 mmol/L (21-31); CHLORIDE 101 mmol/L (97-110); CREATININE 3.64 mg/dl (0.44-1.00); GLUCOSE 111 mg/dl (70-220); POTASSIUM 4.3 mmol/L (3.5-5.1); SODIUM 137 mmol/L (135-144); TOTAL PROTEIN 7.2 g/dl (6.1-8.1)
[2018-09-22 17:08] LABS: ETHANOL < 10.0 mg/dl (0-0); TROPONIN-I < 0.012 ng/ml (0.000-0.120)
[2018-09-22] MEDS ORDERED: ACETAMINOPHEN 325 MG TAB PO (18:30)
[2018-09-22] MEDS ORDERED: ONDANSETRON 4 MG INJ IV (18:30)
[2018-09-22] MEDS ORDERED: DOCUSATE SODIUM 100 MG CAP PO (20:30)
[2018-09-22] MEDS ORDERED: BISACODYL (EC) 5 MG TAB PO (20:30)
[2018-09-22] MEDS ORDERED: NACL 0.9% 3 ML SYG IV (20:30)
[2018-09-23 06:41] LABS: ADD UMIC YES; UR ASCORBIC ACID NEGATIVE (NEGATIVE); UR BACTERIA FEW /HPF (NONE SEEN); UR BILIRUBIN (Dip) NEGATIVE (NEGATIVE); UR BLOOD (Dip) 1+ mg/dL (NEGATIVE); UR CLARITY CLEAR (CLEAR); UR COLOR YELLOW (YELLOW); UR GLUCOSE (Dip) 2+ mg/dL (NEGATIVE); UR KETONES (Dip) NEGATIVE (NEGATIVE); UR LEUKOCYTE ESTERASE (Dip) TRACE Leu/ul (NEGATIVE); UR NITRITE (Dip) NEGATIVE (NEGATIVE); UR RBC 8 /HPF (0-5); UR SPECIFIC GRAVITY (Dip) 1.007 (1.003-1.030); UR SQUAMOUS EPITHELIAL CELL FEW /HPF (FEW); UR TOTAL PROTEIN (Dip) 3+ mg/dl (NEGATIVE); UR UROBILINOGEN (Dip) NEGATIVE (NEGATIVE); UR WBC 2 /HPF (0-5)
[2018-09-23 06:55] LABS: AMPHETAMINE/METHAMPHETAMINE Negative (NEGATIVE); BARBITURATES Negative (NEGATIVE); BENZODIAZEPINES Negative (NEGATIVE); CANNABINOIDS Negative (NEGATIVE); COCAINE Negative (NEGATIVE); OPIATES Negative (NEGATIVE)
[2018-09-23] MEDS: SEVELAMER CARBONATE 800 MG TABLET PO ×3 (07:47→17:38)
[2018-09-23] MEDS: PANTOPRAZOLE (EC) 40 MG TAB PO (07:47)
[2018-09-23] MEDS: CEFTRIAXONE 1 GM/50 ML (PMX) 50 ML IVPB (07:48)
[2018-09-23] MEDS ORDERED: SEVELAMER 800 MG TAB PO (07:55)
[2018-09-23 08:21] LABS: ADD MAN DIFF? NO
[2018-09-23 08:25] LABS: WHITE BLOOD COUNT 8.6 10^3/ul (4.8-10.8)
[2018-09-23 08:25] LABS: BASOPHILS % 0.5 % (0.0-2.0); EOSINOPHILS # 0.1 10^3/ul (0.0-0.5); EOSINOPHILS % 0.8 % (0.0-7.0); HEMATOCRIT 31.3 % (37.0-47.0); HEMOGLOBIN 9.8 g/dl (12.0-16.0); LYMPHOCYTES # 1.6 10^3/ul (0.8-2.9); LYMPHOCYTES % 18.2 % (15.0-51.0); MEAN CORPUSCULAR HEMOGLOBIN 28.2 pg (29.0-33.0); MEAN CORPUSCULAR HGB CONC 31.3 g/dl (32.0-37.0); MEAN CORPUSCULAR VOLUME 90.2 fl (82.0-101.0); MEAN PLATELET VOLUME 10.9 fl (7.4-10.4); MONOCYTE # 0.7 10^3/ul (0.3-0.9); NEUTROPHIL # 6.2 10^3/ul (1.6-7.5); NEUTROPHILS % 71.9 % (39.0-77.0); PLATELET COUNT 215 10^3/UL (140-415); RED BLOOD COUNT 3.47 10^6/ul (4.20-5.40); RED CELL DISTRIBUTION WIDTH 16.1 % (11.5-14.5)
[2018-09-23] MEDS: CALCITRIOL 0.25 MCG CAP PO (08:56)
[2018-09-23] MEDS: FOLIC ACID 1 MG TAB PO (08:57)
[2018-09-23] MEDS: AMIODARONE 200 MG TAB PO ×2 (08:57→21:00)
[2018-09-23] MEDS: MULTIVIT/CA CARB/B CMPLX/FA TAB PO (08:57)
[2018-09-23] MEDS: LOSARTAN 50 MG TAB PO (08:57)
[2018-09-23] MEDS ORDERED: INSULIN GLARGINE [LANTus] (100 UNITS/ML) SYG SC ×2 (09:00)
[2018-09-23] MEDS: ASPIRIN (EC) 325 MG TAB PO (12:03)
[2018-09-23] MEDS ORDERED: DILTIAZEM 25 MG INJ IV (14:30)
[2018-09-23 18:11] LABS: ALANINE AMINOTRANSFERASE 19 IU/L (13-69); ALBUMIN 3.4 g/dl (3.3-4.9); ALBUMIN/GLOBULIN RATIO 0.97; ALKALINE PHOSPHATASE 80 IU/L (42-121); ANION GAP 8 (5-13); ASPARTATE AMINO TRANSFERASE 23 IU/L (15-46); BILIRUBIN,INDIRECT 0.2 mg/dl (0-1.1); BILIRUBIN,TOTAL 0.2 mg/dl (0.2-1.3); BLOOD UREA NITROGEN 39 mg/dl (7-20); CALCIUM 9.2 mg/dl (8.4-10.2); CARBON DIOXIDE 27 mmol/L (21-31); CHLORIDE 103 mmol/L (97-110); GLUCOSE 69 mg/dl (70-220); MAGNESIUM 2.2 mg/dl (1.7-2.5); POTASSIUM 5.7 mmol/L (3.5-5.1); SODIUM 138 mmol/L (135-144); TOTAL PROTEIN 6.9 g/dl (6.1-8.1)
[2018-09-23 19:19] LABS: CREATINE KINASE 25 IU/L (23-200)
[2018-09-23 19:31] LABS: CK INDEX 4.5; CK-MB 1.12 ng/ml (0.0-2.4); TROPONIN-I < 0.012 ng/ml (0.000-0.120)
[2018-09-23] MEDS: ATORVASTATIN 20 MG TAB PO (20:53)
[2018-09-23] MEDS: APIXABAN 5 MG TABLET PO (20:53)
[2018-09-24] MEDS ORDERED: hydrALAzine 20 MG INJ IV
[2018-09-24 01:25] LABS: CREATINE KINASE 27 IU/L (23-200)
[2018-09-24 01:40] LABS: CK INDEX 5.2; CK-MB 1.41 ng/ml (0.0-2.4); TROPONIN-I < 0.012 ng/ml (0.000-0.120)
[2018-09-24] MEDS: SEVELAMER CARBONATE 800 MG TABLET PO ×3 (07:40→18:03)
[2018-09-24] MEDS: CEFTRIAXONE 1 GM/50 ML (PMX) 50 ML IVPB (07:40)
[2018-09-24] MEDS: PANTOPRAZOLE (EC) 40 MG TAB PO (07:40)
[2018-09-24] MEDS: AMIODARONE 200 MG TAB PO ×3 (08:49→20:18)
[2018-09-24] MEDS: CALCITRIOL 0.25 MCG CAP PO (08:56)
[2018-09-24] MEDS: ASPIRIN (EC) 325 MG TAB PO (08:58)
[2018-09-24] MEDS: MULTIVIT/CA CARB/B CMPLX/FA TAB PO (08:58)
[2018-09-24] MEDS: APIXABAN 5 MG TABLET PO ×2 (08:59→20:18)
[2018-09-24] MEDS: FOLIC ACID 1 MG TAB PO (08:59)
[2018-09-24 11:16] LABS: ANION GAP 13 (5-13); BLOOD UREA NITROGEN 58 mg/dl (7-20); CALCIUM 9.5 mg/dl (8.4-10.2); CARBON DIOXIDE 22 mmol/L (21-31); CHLORIDE 100 mmol/L (97-110); CREATININE 6.69 mg/dl (0.44-1.00); GLUCOSE 103 mg/dl (70-220); POTASSIUM 5.8 mmol/L (3.5-5.1); SODIUM 135 mmol/L (135-144)
[2018-09-24 13:08] LABS: HEPATITIS B SURFACE ANTIGEN NEGATIVE (NEGATIVE)
[2018-09-24] MEDS: ONDANSETRON 4 MG INJ IV (14:09)
[2018-09-24] MEDS: ATORVASTATIN 20 MG TAB PO (20:15)
[2018-09-24] MEDS ORDERED: HEPARIN 5,000 UNIT/1 ML VIAL SC (21:00)
[2018-09-25] MEDS: PANTOPRAZOLE (EC) 40 MG TAB PO (06:06)
[2018-09-25] MEDS: CEFTRIAXONE 1 GM/50 ML (PMX) 50 ML IVPB (06:45)
[2018-09-25 07:24] LABS: ANION GAP 11 (5-13); BLOOD UREA NITROGEN 32 mg/dl (7-20); CALCIUM 9.6 mg/dl (8.4-10.2); CARBON DIOXIDE 28 mmol/L (21-31); CHLORIDE 98 mmol/L (97-110); CREATININE 4.82 mg/dl (0.44-1.00); GLUCOSE 101 mg/dl (70-220); POTASSIUM 4.7 mmol/L (3.5-5.1); SODIUM 137 mmol/L (135-144)
[2018-09-25] MEDS: FOLIC ACID 1 MG TAB PO (08:04)
[2018-09-25] MEDS: ACETAMINOPHEN 325 MG TAB PO (08:04)
[2018-09-25] MEDS: SEVELAMER CARBONATE 800 MG TABLET PO ×3 (08:04→17:01)
[2018-09-25] MEDS: CALCITRIOL 0.25 MCG CAP PO (08:05)
[2018-09-25] MEDS: APIXABAN 5 MG TABLET PO ×2 (08:05→20:03)
[2018-09-25] MEDS: AMIODARONE 200 MG TAB PO ×3 (08:05→20:04)
[2018-09-25] MEDS: MULTIVIT/CA CARB/B CMPLX/FA TAB PO (08:06)
[2018-09-25] MEDS ORDERED: VANCOMYCIN IV PER PHARMACY XX (11:00)
[2018-09-25] MEDS: GUAIFENESIN/DM (SR) TAB PO ×2 (12:00→20:06)
[2018-09-25] MEDS: ATORVASTATIN 20 MG TAB PO (20:03)
[2018-09-26] MEDS: PANTOPRAZOLE (EC) 40 MG TAB PO (06:29)
[2018-09-26] MEDS: CEFTRIAXONE 1 GM/50 ML (PMX) 50 ML IVPB (06:30)
[2018-09-26 06:41] LABS: ADD MAN DIFF? NO
[2018-09-26 06:47] LABS: WHITE BLOOD COUNT 12.1 10^3/ul (4.8-10.8)
[2018-09-26 06:47] LABS: BASOPHILS % 0.2 % (0.0-2.0); EOSINOPHILS # 0.1 10^3/ul (0.0-0.5); EOSINOPHILS % 1.1 % (0.0-7.0); HEMATOCRIT 31.8 % (37.0-47.0); LYMPHOCYTES # 1.1 10^3/ul (0.8-2.9); LYMPHOCYTES % 9.2 % (15.0-51.0); MEAN CORPUSCULAR HEMOGLOBIN 28.2 pg (29.0-33.0); MEAN CORPUSCULAR HGB CONC 31.4 g/dl (32.0-37.0); MEAN CORPUSCULAR VOLUME 89.6 fl (82.0-101.0); MEAN PLATELET VOLUME 10.9 fl (7.4-10.4); MONOCYTES % 8.5 % (0.0-11.0); NEUTROPHIL # 9.7 10^3/ul (1.6-7.5); NEUTROPHILS % 80.7 % (39.0-77.0); PLATELET COUNT 253 10^3/UL (140-415); RED BLOOD COUNT 3.55 10^6/ul (4.20-5.40); RED CELL DISTRIBUTION WIDTH 16.1 % (11.5-14.5)
[2018-09-26 07:22] LABS: ANION GAP 13 (5-13); BLOOD UREA NITROGEN 47 mg/dl (7-20); CALCIUM 9.4 mg/dl (8.4-10.2); CARBON DIOXIDE 25 mmol/L (21-31); CHLORIDE 98 mmol/L (97-110); GLUCOSE 95 mg/dl (70-220); POTASSIUM 4.6 mmol/L (3.5-5.1); SODIUM 136 mmol/L (135-144)
[2018-09-26] MEDS: FOLIC ACID 1 MG TAB PO (08:14)
[2018-09-26] MEDS: MULTIVIT/CA CARB/B CMPLX/FA TAB PO (08:14)
[2018-09-26] MEDS: SEVELAMER CARBONATE 800 MG TABLET PO ×3 (08:15→20:57)
[2018-09-26] MEDS: CALCITRIOL 0.25 MCG CAP PO (08:15)
[2018-09-26] MEDS: GUAIFENESIN/DM (SR) TAB PO ×2 (08:18→20:57)
[2018-09-26] MEDS: APIXABAN 5 MG TABLET PO ×2 (08:18→21:02)
[2018-09-26] MEDS: AMIODARONE 200 MG TAB PO ×3 (08:32→20:57)
[2018-09-26] MEDS: VANCOMYCIN 1.25 GM/NS 250 ML 250 ML IVPB (19:06)
[2018-09-26] MEDS: ATORVASTATIN 20 MG TAB PO (20:56)
[2018-09-26] MEDS: EPOETIN ALFA-EPBX (ESRD) 4,000 UNIT/ML VIAL SC (20:59)
[2018-09-27] MEDS: PANTOPRAZOLE (EC) 40 MG TAB PO (06:26)
[2018-09-27] MEDS: CEFTRIAXONE 1 GM/50 ML (PMX) 50 ML IVPB (06:30)
[2018-09-27 07:04] LABS: PHOSPHORUS 3.9 mg/dl (2.5-4.9)
[2018-09-27] MEDS: FOLIC ACID 1 MG TAB PO (08:19)
[2018-09-27] MEDS: SEVELAMER CARBONATE 800 MG TABLET PO ×3 (08:19→17:00)
[2018-09-27] MEDS: GUAIFENESIN/DM (SR) TAB PO ×2 (08:19→22:25)
[2018-09-27] MEDS: CALCITRIOL 0.25 MCG CAP PO (08:19)
[2018-09-27] MEDS: MULTIVIT/CA CARB/B CMPLX/FA TAB PO (08:19)
[2018-09-27] MEDS: APIXABAN 5 MG TABLET PO ×2 (08:19→22:26)
[2018-09-27] MEDS: AMIODARONE 200 MG TAB PO ×3 (08:20→22:25)
[2018-09-27] MEDS: PIPER-TAZO 2.25 GM (PMX) 50 ML IVPB ×2 (15:44→22:26)
[2018-09-27] MEDS: AZITHROMYCIN 500 MG TAB PO (17:00)
[2018-09-27] MEDS: ATORVASTATIN 20 MG TAB PO (22:26)
[2018-09-28 06:26] LABS: ADD MAN DIFF? NO
[2018-09-28] MEDS: PIPER-TAZO 2.25 GM (PMX) 50 ML IVPB ×2 (06:30→13:40)
[2018-09-28] MEDS: PANTOPRAZOLE (EC) 40 MG TAB PO (06:30)
[2018-09-28 06:31] LABS: BASOPHILS % 0.4 % (0.0-2.0); EOSINOPHILS # 0.1 10^3/ul (0.0-0.5); HEMATOCRIT 32.4 % (37.0-47.0); LYMPHOCYTES # 0.9 10^3/ul (0.8-2.9); LYMPHOCYTES % 8.5 % (15.0-51.0); MEAN CORPUSCULAR HEMOGLOBIN 27.8 pg (29.0-33.0); MEAN CORPUSCULAR HGB CONC 30.9 g/dl (32.0-37.0); MEAN PLATELET VOLUME 10.7 fl (7.4-10.4); MONOCYTE # 0.7 10^3/ul (0.3-0.9); MONOCYTES % 6.8 % (0.0-11.0); NEUTROPHIL # 8.7 10^3/ul (1.6-7.5); NEUTROPHILS % 82.7 % (39.0-77.0); PLATELET COUNT 282 10^3/UL (140-415); RED CELL DISTRIBUTION WIDTH 16.1 % (11.5-14.5)
[2018-09-28 06:31] LABS: WHITE BLOOD COUNT 10.5 10^3/ul (4.8-10.8)
[2018-09-28 07:32] LABS: ERYTHROCYTE SEDIMENTATION RATE 64 mm/Hr (0-30)
[2018-09-28] MEDS: CALCITRIOL 0.25 MCG CAP PO (08:56)
[2018-09-28] MEDS: SEVELAMER CARBONATE 800 MG TABLET PO ×2 (08:56→12:30)
[2018-09-28] MEDS: FOLIC ACID 1 MG TAB PO (08:57)
[2018-09-28] MEDS: AMIODARONE 200 MG TAB PO ×2 (08:57→12:33)
[2018-09-28] MEDS: MULTIVIT/CA CARB/B CMPLX/FA TAB PO (08:58)
[2018-09-28] MEDS: APIXABAN 5 MG TABLET PO (08:58)
[2018-09-28] MEDS: GUAIFENESIN/DM (SR) TAB PO (09:03)
[2018-09-28] MEDS: MUPIROCIN 2% 22 GM OINT TOP (10:45)
[2018-09-28 13:23] LABS: ADD UMIC YES; UR ASCORBIC ACID NEGATIVE (NEGATIVE); UR BILIRUBIN (Dip) NEGATIVE (NEGATIVE); UR BLOOD (Dip) NEGATIVE (NEGATIVE); UR CLARITY CLEAR (CLEAR); UR COLOR YELLOW (YELLOW); UR GLUCOSE (Dip) 2+ mg/dL (NEGATIVE); UR KETONES (Dip) NEGATIVE (NEGATIVE); UR LEUKOCYTE ESTERASE (Dip) NEGATIVE Leu/ul (NEGATIVE); UR NITRITE (Dip) NEGATIVE (NEGATIVE); UR RBC 3 /HPF (0-5); UR SPECIFIC GRAVITY (Dip) 1.008 (1.003-1.030); UR SQUAMOUS EPITHELIAL CELL FEW /HPF (FEW); UR TOTAL PROTEIN (Dip) 3+ mg/dl (NEGATIVE); UR UROBILINOGEN (Dip) NEGATIVE (NEGATIVE); UR WBC 2 /HPF (0-5)
[2018-09-28] MEDS ORDERED: AMIODARONE 200 MG TAB PO (21:00)
== END 2018-09-28 19:47 | disposition home health service (06) | DRG 91 ==
LOC: TEL 09-26 15:01 → E/R 16:07 → TEL 18:26
PROVIDERS: Internal Medicine
PROC: 5A1D70Z Performance of Urinary Filtration, Intermittent, Less than 6 Hours Per Day (ICD-10-PCS; principal; 2018-09-24)
DX: G92 Toxic encephalopathy (principal); J18.9 Pneumonia, unspecified organism; N18.6 End stage renal disease; I48.92 Unspecified atrial flutter; D68.59 Other primary thrombophilia; I13.2 Hypertensive heart and chronic kidney disease with heart failure and with stage 5 chronic kidney disease, or end stage renal disease; N25.81 Secondary hyperparathyroidism of renal origin; E11.22 Type 2 diabetes mellitus with diabetic chronic kidney disease; E78.5 Hyperlipidemia, unspecified; I48.0 Paroxysmal atrial fibrillation; I48.2 Chronic atrial fibrillation; E83.39 Other disorders of phosphorus metabolism; D63.1 Anemia in chronic kidney disease; I50.9 Heart failure, unspecified; Z79.4 Long term (current) use of insulin; Z99.2 Dependence on renal dialysis; Z79.01 Long term (current) use of anticoagulants; Z95.0 Presence of cardiac pacemaker; Z86.73 Personal history of transient ischemic attack (TIA), and cerebral infarction without residual deficits
CPT/HCPCS: 70450; 71045; 71046; 80048; 80053; 80307; 81001; 82550; 82553; 82962; 83036; 83735; 84100; 84443; 84484; 85025; 85610; 85651; 85730; 87040-91; 87081; 87086; 87340; 90935; 93005; 93306; 93931; 99285-25

== ENCOUNTER 2018-10-07 16:14 | Emergency (ER) | payer OTHER ==
[2018-10-07] MEDS: ACETAMINOPHEN 325 MG TAB PO (16:55)
[2018-10-07 17:11] LABS: ADD MAN DIFF? NO
[2018-10-07 17:13] LABS: BASOPHILS % 0.2 % (0.0-2.0); EOSINOPHILS # 0.2 10^3/ul (0.0-0.5); EOSINOPHILS % 1.4 % (0.0-7.0); HEMATOCRIT 26.7 % (37.0-47.0); HEMOGLOBIN 8.6 g/dl (12.0-16.0); LYMPHOCYTES # 1.1 10^3/ul (0.8-2.9); LYMPHOCYTES % 8.7 % (15.0-51.0); MEAN CORPUSCULAR HEMOGLOBIN 29.2 pg (29.0-33.0); MEAN CORPUSCULAR HGB CONC 32.2 g/dl (32.0-37.0); MEAN CORPUSCULAR VOLUME 90.5 fl (82.0-101.0); MEAN PLATELET VOLUME 9.6 fl (7.4-10.4); MONOCYTE # 1.2 10^3/ul (0.3-0.9); MONOCYTES % 9.2 % (0.0-11.0); PLATELET COUNT 205 10^3/UL (140-415); RED BLOOD COUNT 2.95 10^6/ul (4.20-5.40); RED CELL DISTRIBUTION WIDTH 15.5 % (11.5-14.5)
[2018-10-07 17:13] LABS: WHITE BLOOD COUNT 12.5 10^3/ul (4.8-10.8)
[2018-10-07 17:49] LABS: ANION GAP 10 (5-13); BLOOD UREA NITROGEN 52 mg/dl (7-20); CALCIUM 9.2 mg/dl (8.4-10.2); CARBON DIOXIDE 24 mmol/L (21-31); CHLORIDE 101 mmol/L (97-110); GLUCOSE 112 mg/dl (70-220); POTASSIUM 4.4 mmol/L (3.5-5.1); SODIUM 135 mmol/L (135-144)
== END 2018-10-07 18:43 | disposition home or self-care (01) ==
LOC: E/R 16:14
DX: T82.7XXA Infection and inflammatory reaction due to other cardiac and vascular devices, implants and grafts, initial encounter (principal); I12.0 Hypertensive chronic kidney disease with stage 5 chronic kidney disease or end stage renal disease; N18.6 End stage renal disease; S80.01XA Contusion of right knee, initial encounter; W01.0XXA Fall on same level from slipping, tripping and stumbling without subsequent striking against object, initial encounter; Y71.2 Prosthetic and other implants, materials and accessory cardiovascular devices associated with adverse incidents; Y92.9 Unspecified place or not applicable; Z79.01 Long term (current) use of anticoagulants; Z99.2 Dependence on renal dialysis; Z86.73 Personal history of transient ischemic attack (TIA), and cerebral infarction without residual deficits; Z79.4 Long term (current) use of insulin
CPT/HCPCS: 73562; 80048; 85025; 99284-25